=== PATIENT | female | born 1970 | race Hispanic/Latino ===

== ENCOUNTER → 2021-06-25 | Outpatient (CLI) | payer MEDICARE | LOC: US 09:29 | PROVIDERS: ATTEND Radiology Body Imaging | DX: R94.5 Abnormal results of liver function studies (principal); Z87.311 Personal history of (healed) other pathological fracture | CPT/HCPCS: 71046; 76700 ==

== ENCOUNTER → 2021-07-08 | Outpatient (CLI) | payer MEDICARE | LOC: MAMMO 14:19 | PROVIDERS: ATTEND Radiology Body Imaging | DX: R74.8 Abnormal levels of other serum enzymes (principal); Z85.3 Personal history of malignant neoplasm of breast | CPT/HCPCS: 77066 ==